=== PATIENT | male | born 1960 | race Caucasian/White ===

== ENCOUNTER 2017-11-27 07:48 | Observation (INO) | payer OTHER ==
[2017-11-27 08:24] LABS: Absolute Lymphocytes (CBC) 1.7 K/uL (0.7-4.9); Absolute Monocytes 0.4 K/uL (0.1-1.3); Absolute Neutrophil 3.2 K/uL (1.8-8.0); Basophils % 0.9 % (0-1.3); Eosinophils % 1.2 % (0-4.4); Hematocrit 47.8 % (39.6-49.0); Lymphocytes % 31.4 % (15.3-44.8); MCH 28.6 pg (27.0-35.0); MCV 83.9 fL (80-100); MPV 8.3 fL (7.6-11.3); Monocytes % 7.8 % (3.3-12.3); RBC Red Blood Cell Count 5.69 M/uL (4.33-5.43)
--- NOTE | 2017-11-27 08:25 | RAD REPORT ---
EXAM DESCRIPTION: CT - Head Brain Wo Cont - 11/27/2017 8:18 am CLINICAL HISTORY: Syncope COMPARISON: None. TECHNIQUE: All CT scans are performed using dose optimization technique as appropriate and may inclu de automated exposure control or mA/KV adjustment according to patient size. FINDINGS: No intracranial hemorrhage, hydrocephalus or extra-axial fluid collection.No areas of brai n edema or evidence of midline shift. The paranasal sinuses and mastoids are clear. The calvarium is intact. IMPRESSION: No acute intracranial abnormality.
--- NOTE | 2017-11-27 08:30 | RAD REPORT ---
EXAM DESCRIPTION: RAD - Chest Single View - 11/27/2017 8:24 am CLINICAL HISTORY: Syncope, chest pain COMPARISON: 01/23/2017 FINDINGS: Portable technique limits examination quality. The lungs are grossly clear. The heart is normal in size. No displaced fractures. IMPRESSION: No acute intrathoracic process suspected.
[2017-11-27 08:34] LABS: Protime INR 0.99
[2017-11-27 09:32] LABS: Potassium 3.7 mEq/L (3.6-5.0)
[2017-11-27 09:35] LABS: Magnesium 1.8 mg/dL (1.8-2.5)
[2017-11-27 09:48] LABS: CKMB Creatine Kinase MB 1.4 ng/ml (0.3-4.0)
[2017-11-27] MEDS ORDERED: NA CHLORIDE 0.9% 1,000 ML ONE (09:57)
--- NOTE | 2017-11-27 10:02 | ER ---
Nurse's Notes [facility] Name: Scott Dyson Age: 57 yrs Sex: Male : 1960 Arrival Date: 11/27/2017 Time: 07:49 Bed 18 Private MD: Diagnosis: Syncope and collapse;Paroxysmal atrial fibrillation Presentation: 11/27 07:45 Presenting complaint: Presenting complaint: EMS states: pt. is A \T\ O x 4, had blood rb1 work done at [place], when he was walking down the [place] he passed out and fell from a standing position. The fall was witnessed, there was no seizure activity. He did have urinary incontinence and had a new onset of A-fib on the 12-lead EKG. Fasting BGL 98. C/o right rib pain. Pain 1/10 and he has abrasions to his knuckles, right cheek, and upper lip. Only history is hypertension, takes Lisinopril 10 mg daily. Has NKA. IV 20 g in the Left AC. 07:45 Onset of symptoms was November 27, 2017 at 07:15. Initial Sepsis Screen: Does the patient rb1 meet any 2 criteria? No. Patient's initial sepsis screen is negative. Does the patient have a suspected source of infection? No. Patient's initial sepsis screen is negative. Care prior to arrival: IV initiated. 20 GA, in the left antecubital area. 07:45 Method Of Arrival: EMS: [facility] rb1 07:45 Transition of care: patient was not received from another setting of care. rb1 07:45 Acuity: ESEQUIEL 3 rb1 Triage Assessment: 07:45 General: Appears in no apparent distress. comfortable, Behavior is calm, cooperative. rb1 Pain: Complains of pain in right ribs Pain does not radiate. Pain currently is 1 out of 10 on a pain scale. Neuro: Level of Consciousness is awake, alert, obeys commands, Oriented to person, place, time, situation, Manufacturing Engineering Professor are equal bilaterally Moves all extremities. Gait is steady, Speech is normal, Facial symmetry appears normal, Pupils are PERRLA, Denies blurred vision dizziness. Cardiovascular: Capillary refill < 3 seconds is brisk in bilateral fingers. Respiratory: Airway is patent Respiratory effort is even, unlabored, Respiratory pattern is regular, symmetrical. GI: No signs and/or symptoms were reported involving the gastrointestinal system. : Reports incontinence, urinary incontinence with syncope episode. Derm: Skin is pink, warm \T\ dry. abrasions noted to right hand, upper lip, and right cheek. Musculoskeletal: Range of motion: intact in all extremities. Injury Description: Abrasion sustained to right cheek, right hand, and upper lip. Historical: - Allergies: 07:45 No Known Allergies; rb1 - Home Meds: :45 lisinopril 10 mg Oral tab 1 tab once daily [Active]; rb1 - PMHx: :45 Hypertension; rb1 - PSHx: :45 None; rb1 - Immunization history:: Adult Immunizations up to date. - Social history:: Smoking status: Patient uses tobacco products, denies chronic smoking, but will smoke occasionally. Screenin:45 Abuse screen: Denies threats or abuse. Nutritional screening: No deficits noted. rb1 Tuberculosis screening: No symptoms or risk factors identified. Fall Risk Fall in past 12 months (25 points). No secondary diagnosis (0 pts). IV access (20 points). Ambulatory Aid- None/Bed Rest/Nurse Assist (0 pts). Gait- Normal/Bed Rest/Wheelchair (0 pts) Mental Status- Oriented to own ability (0 pts). Total Burnette Fall Scale indicates High Risk Score (45 or more points). Fall prevention measures have been instituted. Side Rails Up X 2 Placed Close to Nursing Station 1:1 Attendant Assigned Frequent Obs/Assessments Occuring Family Present and informed to notify staff if the need to leave the bedside As available patient and family educated on Fall Prevention Program and Strategies. Assessment: 07:45 General: See triage assessment. rb1 08:45 Reassessment: Patient appears in no apparent distress at this time. No changes from rb1 previously documented assessment. 08:45 Reassessment: Patient appears in no apparent distress at this time. Patient and/or rb1 family updated on plan of care and expected duration. Pain level reassessed. Patient is alert, oriented x 3, equal unlabored respirations, skin warm/dry/pink. Co-worker at bedside. 10:15 General: Appears in no apparent distress. comfortable, Behavior is calm, cooperative, aj1 appropriate for age. Pain: Denies pain. Neuro: Level of Consciousness is awake, alert, obeys commands, Oriented to person, place, time, situation, Moves all extremities. Full function Speech is normal, Facial symmetry appears normal, Pupils are PERRLA, Intact. Cardiovascular: Patient's skin is warm and dry. Rhythm is sinus rhythm. Respiratory: Airway is patent Respiratory effort is even, unlabored, Respiratory pattern is regular, symmetrical. GI: No deficits noted. No signs and/or symptoms were reported involving the gastrointestinal system. : No deficits noted. EENT: No deficits noted. No signs and/or symptoms were reported regarding the EENT system. Derm: Skin is pink, warm \T\ dry. Musculoskeletal: Circulation, motion, and sensation intact. Injury Description: Abrasion sustained to right cheek and philtrum and right hand. 11:15 Reassessment: Patient appears in no apparent distress at this time. No changes from aj1 previously documented assessment. Patient and/or family updated on plan of care and expected duration. Pain level reassessed. Patient is alert, oriented x 3, equal unlabored respirations, skin warm/dry/pink. 12:15 Reassessment: Patient appears in no apparent distress at this time. No changes from aj1 previously documented assessment. Patient and/or family updated on plan of care and expected duration. Pain level reassessed. Patient is alert, oriented x 3, equal unlabored respirations, skin warm/dry/pink. 12:58 Reassessment: Patient appears in no apparent distress at this time. No changes from aj1 previously documented assessment. Patient and/or family updated on plan of care and expected duration. Pain level reassessed. Patient is alert, oriented x 3, equal unlabored respirations, skin warm/dry/pink. Vital Signs: 07:45 BP 117 / 89; Pulse 84; Resp 19; Temp 97.7(O); Pulse Ox 95% on R/A; Weight 90.72 kg (R); rb1 Height 5 ft. 10 in. (177.80 cm) (R); Pain /10; 08:30 BP 113 / 92; Pulse 95; Resp 18; Pulse Ox 95% on R/A; rb1 09:00 BP 104 / 94; Pulse 97; Resp 16; Pulse Ox 95% on R/A; rb1 10:14 BP 120 / 86; Pulse 98; Resp 18; Pulse Ox 98% on R/A; aj1 11:15 BP 125 / 88; Pulse 102; Resp 18; Pulse Ox 99% ; aj1 13:01 BP 146 / 87; Pulse 98; Resp 18; Pulse Ox 99% ; aj1 07:45 Body Mass Index 28.70 (90.72 kg, 177.80 cm) rb1 ED Course: 07:45 Arm band placed on right wrist. rb1 07:45 Patient has correct armband on for positive identification. Placed in gown. Bed in low rb1 position. Call light in reach. Side rails up X 1. environmental monitoring technician on. Pulse ox on. NIBP on. Warm blanket given. 07:45 Maintain EMS IV. Dressing intact. Good blood return noted. Site clean \T\ dry. Gauge \T\ rb 1 site: 20 g L AC. 07:49 Patient arrived in ED. rb1 07:50 Erika Farr [facility]-C [facility]. kb 07:50 Filippo Steen MD is Attending Physician. kb 08:03 Genesis Willingham, KYRA is Primary Nurse. rb1 08:[address] via stretcher. vr 08:13 Triage completed. rb1 08:16 CT completed. Patient tolerated procedure well. Patient moved to radiology Patient vr moved back from CT. 08:17 CT Head Brain wo Cont In Process Unspecified. EDMS 08:21 X-ray completed. Patient tolerated procedure well. Patient moved to radiology via jb2 stretcher. 08:23 XRAY Chest (1 view) In Process Unspecified. EDMS 08:23 Basic Metabolic Panel Sent. mh5 08:23 BNP Sent. mh5 08:23 CBC with Diff Sent. mh5 08:24 Ckmb Sent. mh5 08:24 CPK Sent. mh5 08:24 Magnesium Sent. mh5 08:24 PT-INR Sent. mh5 08:24 Ptt, Activated Sent. mh5 08:24 Troponin (emerg Dept Use Only) Sent. mh5 08:24 Basic Metabolic Panel Sent. mh5 08:25 Initial lab(s) drawn, by me, sent to lab. EKG done, by vp information technology. reviewed by Erika CALIXTO. 10:00 Felipa Ruano MD is Hospitalizing Provider. kb 10:00 Report given to KYRA Hudson. rb1 13:01 No provider procedures requiring assistance completed. Patient admitted, IV remains in aj1 place. 13:02 Report given to KYRA Ramires on 2nd floor. aj1 Administered Medications: 10:01 Drug: NS 0.9% 1000 ml Route: IV; Rate: 1000 ml; Site: left antecubital; aj1 Outcome: 10:00 Decision to Hospitalize by Provider. kb 13:19 Admitted to Tele accompanied by tech, via wheelchair, with chart. aj1 13:19 Condition: stable 13:19 Discharge instructions given to patient, Instructed on the need for admit, Demonstrated understanding of instructions. 13:19 Patient left the ED. aj1 Signatures: Dispatcher [employer] EDErika Bucio, GAYATHRI-Umer NOVAP-Precious La, RN RN aj1 Sonido Garcia Victoria vr Barber, Rebecca RN RN rb1 Kay Waters [facility] Corrections: (The following items were deleted from the chart) 08:13 07:49 Presenting complaint: rb1 rb1
--- NOTE | 2017-11-27 10:02 | EDPHYS ---
Physician Documentation [facility] Name: Scott Dyson Age: 57 yrs Sex: Male : 1960 Arrival Date: 11/27/2017 Time: 07:49 Bed 18 Private MD: ED Physician Filippo Steen HPI: 11/27 08:22 This 57 yrs old Male presents to ER via EMS with complaints of Syncope. kb 08:22 The patient has experienced syncope, collapsed. Onset: The symptoms/episode kb began/occurred just prior to arrival. Duration: This was a single episode. Context: the episode(s) was witnessed, by co-worker(s), occurred at work, occurred while the patient was walking, Just prior to the episode the patient experienced no apparent symptoms. Associated injury: Chest: right lateral anterior chest, pain. Associated signs and symptoms: The patient has no apparent associated signs or symptoms. Current symptoms: Currently, the patient is not experiencing any symptoms, the patient feels back to baseline, no decreased level of consciousness, no confusion, no dysphasia, no headache, no paralysis, no visual changes. The patient has not experienced similar symptoms in the past. The patient has not recently seen a physician. Pt states he had to have a work physical this morning. Was fasting, had blood drawn, was walking back down the hallway and had a syncopal episode. Pt remembers events up until passing out then waking up with the paramedics there. . Historical: - Allergies: 07:45 No Known Allergies; rb1 - Home Meds: 07:45 lisinopril 10 mg Oral tab 1 tab once daily [Active]; rb1 - PMHx: 07:45 Hypertension; rb1 - PSHx: 07:45 None; rb1 - Immunization history:: Adult Immunizations up to date. - Social history:: Smoking status: Patient uses tobacco products, denies chronic smoking, but will smoke occasionally. ROS: 08:20 Constitutional: Negative for fever, chills, and weight loss, Respiratory: Negative for kb shortness of breath, cough, wheezing, and pleuritic chest pain, Abdomen/GI: Negative for abdominal pain, nausea, vomiting, diarrhea, and constipation, Back: Negative for injury and pain, : Negative for injury, bleeding, discharge, and swelling, MS/Extremity: Negative for injury and deformity. 08:20 Neuro: Positive for syncope, Negative for altered mental status, dizziness, gait disturbance, headache, hearing loss, loss of consciousness, numbness, seizure activity, speech changes, near syncope, tingling, tinnitus, tremor, visual changes, weakness. 08:21 Cardiovascular: Positive for chest pain, Negative for edema, orthopnea, palpitations, kb paroxysmal nocturnal dyspnea. 08:21 Skin: Positive for abrasion(s). Exam: 08:20 Constitutional: This is a well developed, well nourished patient who is awake, alert, kb and in no acute distress. Head/Face: Normocephalic, atraumatic. ENT: Nares patent. No nasal discharge, no septal abnormalities noted. Tympanic membranes are normal and external auditory canals are clear. Oropharynx with no redness, swelling, or masses, exudates, or evidence of obstruction, uvula midline. Mucous membranes moist. Neck: Trachea midline, no thyromegaly or masses palpated, and no cervical lymphadenopathy. Supple, full range of motion without nuchal rigidity, or vertebral point tenderness. No Meningismus. Chest/axilla: Normal chest wall appearance and motion. Nontender with no deformity. No lesions are appreciated. Cardiovascular: Regular rate and rhythm with a normal S1 and S2. No gallops, murmurs, or rubs. Normal PMI, no JVD. No pulse deficits. Respiratory: Lungs have equal breath sounds bilaterally, clear to auscultation and percussion. No rales, rhonchi or wheezes noted. No increased work of breathing, no retractions or nasal flaring. Abdomen/GI: Soft, non-tender, with normal bowel sounds. No distension or tympany. No guarding or rebound. No evidence of tenderness throughout. MS/ Extremity: Pulses equal, no cyanosis. Neurovascular intact. Full, normal range of motion. Neuro: Awake and alert, GCS 15, oriented to person, place, time, and situation. Cranial nerves II-XII grossly intact. Motor strength 5/5 in all extremities. Sensory grossly intact. Cerebellar exam normal. Normal gait. 08:20 Skin: injury, abrasion(s), small abrasion noted, of the face and right hand. Vital Signs: 07:45 BP 117 / 89; Pulse 84; Resp 19; Temp 97.7(O); Pulse Ox 95% on R/A; Weight 90.72 kg (R); rb1 Height 5 ft. 10 in. (177.80 cm) (R); Pain 1/10; 08:30 BP 113 / 92; Pulse 95; Resp 18; Pulse Ox 95% on R/A; rb1 09:00 BP 104 / 94; Pulse 97; Resp 16; Pulse Ox 95% on R/A; rb1 10:14 BP 120 / 86; Pulse 98; Resp 18; Pulse Ox 98% on R/A; aj1 11:15 BP 125 / 88; Pulse 102; Resp 18; Pulse Ox 99% ; aj1 13:01 BP 146 / 87; Pulse 98; Resp 18; Pulse Ox 99% ; aj1 07:45 Body Mass Index 28.70 (90.72 kg, 177.80 cm) rb1 MDM: 07:50 Patient medically screened. kb 08:21 Data reviewed: vital signs, nurses notes. Data interpreted: Pulse oximetry: on room air kb is 95 %. Interpretation: normal. 10:00 Counseling: I had a detailed discussion with the patient and/or guardian regarding: the kb historical points, exam findings, and any diagnostic results supporting the discharge/admit diagnosis, lab results, radiology results, the need for further work-up and treatment in the hospital. 11/27 07:58 Order name: Basic Metabolic Panel kb 11/27 07:58 Order name: BNP; Complete Time: 09:16 kb 11/27 07:58 Order name: CBC with Diff; Complete Time: 08:29 kb 11/27 07:58 Order name: Ckmb; Complete Time: 09:49 kb 11/27 07:58 Order name: CPK; Complete Time: 09:49 kb 11/27 07:58 Order name: Magnesium; Complete Time: 09:50 kb 11/27 07:58 Order name: PT-INR; Complete Time: 08:38 kb 11/27 07:58 Order name: Ptt, Activated; Complete Time: 08:38 kb 11/27 07:58 Order name: Troponin (emerg Dept Use Only); Complete Time: 09:01 kb 11/27 07:58 Order name: XRAY Chest (1 view); Complete Time: 08:30 kb 11/27 07:58 Order name: CT Head Brain wo Cont; Complete Time: 08:29 kb 11/27 07:58 Order name: Basic Metabolic Panel; Complete Time: 09:49 EDMS 11/27 11:47 Order name: Urine Dipstick--Ancillary (enter results) mw2 11/27 12:05 Order name: Urine Dipstick-Ancillary; Complete Time: 12:05 EDMS 11/27 07:58 Order name: EKG; Complete Time: 07:59 kb 11/27 07:58 Order name: Cardiac monitoring; Complete Time: 08:00 kb 11/27 07:58 Order name: EKG - Nurse/Tech; Complete Time: 07:59 kb 11/27 07:58 Order name: IV Saline Lock; Complete Time: 08:23 kb 11/27 07:58 Order name: Labs collected and sent; Complete Time: 08:23 kb 11/27 07:58 Order name: O2 Per Protocol; Complete Time: 08:23 kb 11/27 07:58 Order name: O2 Sat Monitoring; Complete Time: 08:23 kb 11/27 07:58 Order name: Urine Dipstick-Ancillary (obtain specimen); Complete Time: 11:43 kb 11/27 10:01 Order name: Diet Regular; Complete Time: 10:02 aj 11/27 12:37 Order name: VAS; Complete Time: 12:40 EDMS Administered Medications: 10:01 Drug: NS 0.9% 1000 ml Route: IV; Rate: 1000 ml; Site: left antecubital; aj1 Disposition: 16:40 Co-signature as Attending Physician, Filippo Steen MD. Disposition: 11/27/17 10:00 Hospitalization ordered by Felipa Ruano for Observation. Preliminary diagnosis are Syncope and collapse, Paroxysmal atrial fibrillation. - Bed requested for Telemetry/MedSurg (observation). - Status is Observation. aj1 - Condition is Stable. - Problem is new. - Symptoms have improved. UTI on Admission? No Signatures: Dispatcher [employer] EDKS Erika Farr, Precious Baker RN RN aj1 Genesis Willingham RN RN rb1 Starr, Gregory, MD MD Nehemiah Lombardi mw2 Corrections: (The following items were deleted from the chart) 08:22 08:20 Constitutional: Negative for fever, chills, and weight loss, Cardiovascular: kb Negative for chest pain, palpitations, and edema, Respiratory: Negative for shortness of breath, cough, wheezing, and pleuritic chest pain, Abdomen/GI: Negative for abdominal pain, nausea, vomiting, diarrhea, and constipation, Back: Negative for injury and pain, : Negative for injury, bleeding, discharge, and swelling, MS/Extremity: Negative for injury and deformity, Skin: Negative for injury, rash, and discoloration, kb
[2017-11-27 12:05] LABS: Urine Blood NEGATIVE (NEG); Urine Glucose NEGATIVE (NEG); Urine Protein TRACE (NEG); Urine Specific Gravity 1.025 (1.005-1.030)
--- NOTE | 2017-11-27 12:37 | RAD REPORT ---
EXAM DESCRIPTION: WOJCIECH - CP - 11/27/2017 12:29 pm CLINICAL HISTORY: Syncope COMPARISON: None. TECHNIQUE: Real-time sonographic evaluation of both carotid systems was performed. Doppler interroga tion was performed with waveform tracing bilaterally. FINDINGS: Normal high resistance waveforms are noted in both external carotid arteries. The common c arotid arteries and internal carotid arteries show normal low resistance waveforms. No significant plaque formation is seen. Peak systolic and end diastolic velocity values and the ICA/ CCA ratios are in the non-hemodynamically significant range. Antegrade flow seen in both vertebral arteries. IMPRESSION: No significant atherosclerotic changes noted. No evidence of a hemodynamically significant stenosis.
[2017-11-27] MEDS ORDERED: NA CHLORIDE 0.9% 1,000 ML IV SCH (13:14)
--- NOTE | 2017-11-27 13:41 | P.SSS ---
Patient History Date of Service: 11/27/17 Primary Care Provider: Dr Bowen Reason for admission: Syncopal Episode History of Present Illness: This is a 57-year-old male with significant past medical history of hypertension who presented to the ED after having a syncopal episode at the laboratory. Patient stated that this morning he was at the lab to get his lab work done and when he was leaving he fell and he hit his head. Patient states that after his lab work was done he did feel some nausea and then he had a syncopal episode. Patient when he woke up did not remember any signs before the fall and was not complaining of anything. EMS was called and patient was brought over to the ER. On the way here to the hospital patient had a 6 seconds of atrial fibrillation which was converted back without any intervention. Patient states that he has never had anything like this happen to him before this is the 1st time that he had a syncopal episode. Patient had not had anything to eat or drink for about 24 hr due to the lab work that he had to get done. Allergies No Known Allergie Allergy (Uncoded 01/23/17 07:52) Unknown No Known Allergies Allergy (Uncoded 11/27/17 13:24) Unknown Home Medications: Lisinopril 10 mg PO DAILY 11/27/17 - Past Medical/Surgical History Has patient received pneumonia vaccine in the past: No Diabetic: No -: HTN - Social History Smoking Status: Never smoker Alcohol use: No CD- Drugs: No Caffeine use: Yes Place of Residence: Home Review of Systems General: As per HPI Physical Examination - Vital Signs Blood Pressure: 146/87 Pulse: 98 Respirations: 18 - Physical Exam General: Alert, In no apparent distress, Oriented x3 HEENT: Atraumatic, PERRLA, Mucous membr. moist/pink, EOMI, Sclerae nonicteric Neck: Supple, 2+ carotid pulse no bruit, No LAD, Without JVD or thyroid abnormality Respiratory: Clear to auscultation bilaterally, Normal air movement Cardiovascular: Regular rate/rhythm, Normal S1 S2 Gastrointestinal: Normal bowel sounds, No tenderness Musculoskeletal: No tenderness Integumentary: No rashes Neurological: Normal gait, Normal speech, Normal strength at 5/5 x4 extr, Normal tone, Normal affect Lymphatics: No axilla or inguinal lymphadenopathy - Studies Laboratory Data (last 24 hrs) 11/27/17 08:10: PT 11.7, INR 0.99, APTT 18.3 L 11/27/17 08:10: WBC 5.4, Hgb 16.3, Hct 47.8, Plt Count 193 11/27/17 08:10: B-Natriuretic Peptide < 10 11/27/17 08:10: Sodium 136, Potassium 3.7, BUN 16, Creatinine 1.25 H, Glucose 129 H, Magnesium 1.8 - Diagnosis (Problem(s)) (1) Syncopal episodes Current Visit: Yes Status: Acute Plan: Syncopal Episode most likely vasovagal vs Dehydration -Head CT negative -Carotid Doppler Negative -ECHO pending -IV fluids and get orthostatics -PT consulted. -DC in 24hrs if improvement Qualifiers: Syncope type: vasovagal syncope Qualified Code(s): R55 - Syncope and collapse (2) HTN (hypertension) Current Visit: Yes Status: Chronic Plan: Restarted on Lisinopril Qualifiers: Hypertension type: essential hypertension Qualified Code(s): I10 - Essential (primary) hypertension - Disposition Disposition: ROUTINE DISCHARGE Condition: GOOD Diet: Regular Activity: Ad joseph
[2017-11-27] MEDS ORDERED: TRAMADOL HCL 50 MG TAB PO ONE (14:00)
--- NOTE | 2017-11-27 15:40 | EKG ---
Test Date: 2017-11-27 Test Time: 07:58:41 [employer]ustainable Communities Designer: TERELL MEASUREMENT RESULTS: Intervals: Rate: 79 NM: 182 QRSD: 88 QT: 378 QTc: 433 [place]: P: 47 NM: 182 QRS: -29 T: 30 INTERPRETIVE STATEMENTS: Normal sinus rhythm Possible Left atrial enlargement Borderline ECG Compared to ECG 01/23/2017 06:04:32 Sinus bradycardia no longer present Electronically Signed On 11-27-17 15:37:49 CDT by [place]
--- NOTE | 2017-11-27 16:01 | ECHO ---
HEIGHT: 5 ft 10 in WEIGHT: 200 lb 0 oz DATE OF STUDY: 11/27/[address]: Felipa Ruano MD 2-DIMENSIONAL: YES M.MODE: YES DOPPLER: YES COLOR FLOW: YES TDS: PORTABLE: DEFINITY: BUBBLE STUDY: DIAGNOSIS: SYNCOPE CARDIAC HISTORY: CATHERIZATION: NO SURGERY: NO PROSTHETIC VALVE: NO PACEMAKER: NO MEASUREMENTS (cm) DIASTOLIC (NORMALS) SYSTOLIC (NORMALS) IVSd 1.1 (0.6-1.2) LA Diam 4.0 (1.9-4.0) LVEF 58% LVIDd 4.3 (3.5-5.7) LVIDs 3.0 (2.0-3.5) %FS 31% LVPWd 1.1 (0.6-1.2) Ao Diam (2.0-3.7) 2 DIMENSIONAL ASSESSMENT: RIGHT ATRIUM: NORMAL LEFT ATRIUM: NORMAL RIGHT VENTRICLE: NORMAL LEFT VENTRICLE: NORMAL TRICUSPID VALVE: NORMAL MITRAL VALVE: NORMAL PULMONIC VALVE: NORMAL AORTIC VALVE: NORMAL PERICARDIAL EFFUSION: NONE AORTIC ROOT: NORMAL LEFT VENTRICULAR WALL MOTION: NORMAL DOPPLER/COLOR FLOW: NORMAL COMMENTS: NORMAL 2D ECHO. NORMAL DOPPLER. TECHNICALLY DIFFICULT STUDY. TECHNOLOGIST: JEAN CARLOS VALLE RDCS
[2017-11-28] MEDS ORDERED: LISINOPRIL 10 MG TAB PO SCH (09:00)
== END 2017-11-27 18:04 | disposition home or self-care (01) ==
LOC: ER 07:48 → ERHOLD 10:01 → 2ND 13:02
PROVIDERS: ADMIT Family Medicine; ATTEND Family Medicine
DX: R55 Syncope and collapse (principal); I10 Essential (primary) hypertension; I48.91 Unspecified atrial fibrillation
CPT/HCPCS: 36415; 70450; 71045; 80048; 81003; 82550; 82553; 83735; 83880; 84484; 85025; 85610; 85730; 93005; 93306; 93880; 97163; 99285; G0378; J7030